=== PATIENT | female | born 1960 | race Hispanic/Latino ===

== ENCOUNTER 2018-08-30 08:20 | Day surgery (SDC) | payer MEDICARE ==
[2018-08-27 10:30] VITALS: BP 119/63
[2018-08-27 10:52] LABS: APPEARANCE,URINE Clear (CLEAR); BILIRUBIN,URINE Negative (NEGATIVE); COLOR,URINE Yellow (YELLOW); GLUCOSE, URINE (UA) Negative (NEGATIVE); KETONES,URINE Negative (NEGATIVE); LEUKOCYTE ESTERASE ,URINE Negative (NEGATIVE); NITRATE,URINE Negative (NEGATIVE); OCCULT BLOOD,URINE Moderate (NEGATIVE); PH,URINE 6.5 (5.0-8.0); PROTEIN,URINE POS 1+ (NEGATIVE)
[2018-08-27 10:52] LABS: EOSINOPHILS % (AUTO) 2.3 % (0.0-8.0); HEMATOCRIT 33.5 % (36-48); MEAN CORPUSCULAR HEMOGLOBIN 29.9 pg (27.0-33.0); MEAN CORPUSCULAR HGB CONC 33.5 g/dL (32.0-36.0); MEAN CORPUSCULAR VOLUME 89.3 fL (79-99); MONOCYTES % (AUTO) 10.9 % (3.0-13.0); NEUTROPHILS % (AUTO) 53.8 % (40.0-77.0); PLATELET COUNT (AUTO) 117 K/uL (130-400); RED BLOOD CELL COUNT(AUTO) 3.75 MIL/uL (4.00-5.50); RED CELL DISTRIBUTION WIDTH 14.4 % (11.0-15.5); WHITE BLOOD COUNT (AUTO) 5.3 K/uL (4.8-10.8)
[2018-08-27 11:00] LABS: CREATININE 1.4 mg/dL (0.5-1.5); POTASSIUM 4.6 mmol/L (3.5-5.1)
[2018-08-27 11:11] LABS: BACTERIA,URINE Few /HPF (None Seen); WBC,URINE 0-1 /HPF (0-1)
[2018-08-27 11:11] LABS: PARTIAL THROMBOPLASTIN TIME 28.2 SEC (26.3-35.5); PROTHROMBIN TIME 10.5 SEC (9.6-11.6)
[~2018-08-30] VITALS: Ht 154.9 cm; Wt 66.1 kg
[2018-08-30] VITALS (9 sets, daily range): BP systolic 102–154; BP diastolic 54–73
[~2018-08-30 08:20] MED LIST: ACET1TAB25 PO; BUPR-47 PO; CHLO25TA3 PO; DAPA5TAB PO; INSU3INS3 SQ; LEVO50TA11 PO; LOSA100T20 PO; METF-444 PO; MIRT15TA7 PO; OMEP40CA37 PO; PANT40TA25 PO; PIOG15TA66 PO; PRAV10TA39 PO; PROP60TA20 PO; ROPI0.5T5 PO; SODIUM CHLORIDE 0.9% 500ML 500 ML IV SCH; TRULIC SQ
[2018-08-30] MEDS ORDERED: SODIUM CHLORIDE 0.9% 1000ML 1,000 ML IV ONE (09:24)
[2018-08-30] MEDS ORDERED: NITROGLYCERIN 5 MG/ML 10 ML VIAL IV ONE (09:47)
[2018-08-30] MEDS ORDERED: IOHEXOL 350 MG/ML 100ML INFUS..BTL IV ONE (09:47)
[2018-08-30] MEDS ORDERED: IOHEXOL-350 50ML VIAL IV ONE (09:47)
[2018-08-30] MEDS ORDERED: LIDOCAINE HCL-MPF 2% 5ML VIAL ONE (09:47)
[2018-08-30] MEDS ORDERED: MIDAZOLAM HCL 1 MG/ML 2ML VIAL ONE (10:41)
[2018-08-30] MEDS ORDERED: DEXTROSE 50%-WATER 50 ML DISP.SYRIN IV PRN (11:15)
[2018-08-30] MEDS ORDERED: GLUCAGON 1MG KIT 1 MG ML IM PRN (11:15)
== END 2018-08-30 15:00 | disposition home or self-care (01) ==
LOC: DAH 08:20
PROVIDERS: ATTEND Internal Medicine Cardiovascular Disease
DX: I20.9 Angina pectoris, unspecified (principal); I10 Essential (primary) hypertension; E78.5 Hyperlipidemia, unspecified; E11.9 Type 2 diabetes mellitus without complications; Z90.49 Acquired absence of other specified parts of digestive tract; Z79.899 Other long term (current) drug therapy; Z79.4 Long term (current) use of insulin; Z79.84 Long term (current) use of oral hypoglycemic drugs
CPT/HCPCS: 36415; 71045; 80048; 81001; 82948 ×2; 85025; 85610; 85730; 93005; 93458; A4606; C1760; C1894; J1644; J2250; J3490 ×2; J7030; Q9965; Q9967 ×2; 99156; 99157

== ENCOUNTER → 2020-05-25 | Outpatient (CLI) | payer MEDICARE ==
[~2020-05-25] VITALS: Ht 154.9 cm; Wt 62.1 kg
[~2020-05-25] MED LIST changes: -LOSA100T20 PO; +LOSA100T58 PO; +MIRT-72 PO; -MIRT15TA7 PO; -OMEP40CA37 PO; -PANT40TA25 PO; +PANT40TA54 PO; -ROPI0.5T5 PO; +ROPI0.5T7 PO; -SODIUM CHLORIDE 0.9% 500ML 500 ML IV SCH
[2020-05-25 16:06] LABS: CREATININE 1.8 mg/dL (0.5-1.5); POTASSIUM 5.2 mmol/L (3.5-5.1)
[2020-05-28 10:48] VITALS: BP 127/64
== END | disposition home or self-care (01) ==
LOC: LAB 15:27 → EDSTATUS 05-29 08:45
PROVIDERS: ATTEND Neurological Surgery
DX: Z01.818 Encounter for other preprocedural examination (principal); Z11.59 Encounter for screening for other viral diseases
CPT/HCPCS: 36415; 80048; U0003

== ENCOUNTER → 2023-05-20 | Outpatient (CLI) | payer MEDICARE ==
[~2023-05-20] MED LIST changes: +ACET-2079 PO; -ACET1TAB25 PO; -BUPR-47 PO; +BUPR-49 PO; -DAPA5TAB PO; -INSU3INS3 SQ; +IOHEXOL 350 MG/ML 100ML INFUS..BTL IV ONE; -LOSA100T58 PO; -METF-444 PO; +METOPROLOL TARTRATE 1 MG/ML 5ML VIAL IV ONE; -MIRT-72 PO; -PANT40TA54 PO; -PIOG15TA66 PO; -PRAV10TA39 PO; -PROP60TA20 PO; -ROPI0.5T7 PO; -TRULIC SQ
== END | disposition home or self-care (01) ==
LOC: RAH 13:57
PROVIDERS: ATTEND Student in an Organized Health Care Education/Training Program
DX: R07.9 Chest pain, unspecified (principal)
CPT/HCPCS: 75574; J3490; Q9967